=== PATIENT | female | born 1960 | race Caucasian/White ===

== ENCOUNTER 2022-11-18 09:28 | Emergency (ER) | payer BC ==
[2022-11-18] MEDS ORDERED: Sodium Chloride 0.9% 1000 ML 1,000 ML IV SCH (10:30)
--- NOTE | 2022-11-18 10:30 | ERPHSYRPT ---
- History of Present Illness Time Seen by Provider: 11/18/22 10:25 Historian: patient Exam Limitations: no limitations Patient Subjective Stated Complaint: C/O right sided abdominal pain for the past 2 days. Pain has become more constant. Mild nausea without vomiting. Patient is unsure if she has an appendix or not; states gallbladder was removed in the 80s and she can't recall if they took out her appendix as well or not. Triage Nursing Assessment: Patient ambulated back to ER without difficulties. She is alert and oriented. No SOB. Skin tone normal. Right side of abdomen is tender to mild palpation. Bowel sounds present but more faint on the right side. Physician History: Patient is a 62-year-old female presents to our ED for evaluation of right upper and mid abdominal pain. Pain started 2 days ago and has been constant. Patient has been experiencing a "bloated" sensation. Patient has been experiencing d iarrhea as well. No nausea or vomiting. Patient states she had a cholecystectomy done in the 80s. She is unsure of whether or not she has an appendix. No trauma. No fever. Symptoms are constant. Symptoms are moderate in intensity. Palpation and movement reproduce pain. Pain improved with rest. Patient states she is otherwise healthy. She voices no other complaints or concerns at this time. Portions of this note were created with voice recognition technology. There may be grammatical, spelling, punctuation or sound alike errors Timing/Duration: day(s) (2 days ago) Activities at Onset: none Quality: aching Abdominal Pain Onset Location: RUQ, other (Right upper quadrant and right mid abdomen) Pain Radiation: no radiation Severity of Pain-Max: moderate Severity of Pain-Current: mild Modifying Factors: Improves With: movement, palpation Associated Symptoms: diarrhea Previous symptoms: no prior history Allergies/Adverse Reactions: methylprednisolone [From Medrol] Adverse Reaction (Verified 11/18/22 09:42) Home Medications: Sulphur-3/Dha/Epa/Fish Oil [Fish Oil 1,600 mg/5 ml Liquid] 1,600 mg PO DAILY 04/30/15 [History] Lactobacillus Combo No.10 [Probiotic] 1 cap PO DAILY 11/18/22 [History] Magnesium Oxide 400 mg [Mag-Ox 400] 1 tab PO DAILY 11/18/22 [History] Hx Tetanus, Diphtheria Vaccination/Date Given: Yes Immunizations Up to Date: Yes Travel Risk - International Travel Have you traveled outside of the country in past 3 weeks: No - Coronavirus Screening Are you exhibiting any of the following symptoms?: Yes Symptoms: Vomiting/Diarrhea, Headaches/Body Aches/Fatigue Close contact with a COVID-19 positive Pt in past 14-21 Days: No - Vaccine Status Have you recieved a Covid-19 vaccination: No - Review of Systems Constitutional: No Symptoms, No Fever, No Chills Eyes: No Symptoms Ears, Nose, & Throat: No Symptoms Respiratory: No Symptoms, No Cough, No Dyspnea Cardiac: No Symptoms, No Chest Pain, No Edema, No Syncope Abdominal/Gastrointestinal: No Symptoms, No Abdominal Pain, No Nausea, No Vomiting, No Diarrhea Genitourinary Symptoms: No Symptoms, No Dysuria Musculoskeletal: No Symptoms, No Back Pain, No Neck Pain Skin: No Symptoms, No Rash Neurological: No Symptoms, No Dizziness, No Focal Weakness, No Sensory Changes Psychological: No Symptoms Endocrine: No Symptoms Hematologic/Lymphatic: No Symptoms Immunological/Allergic: No Symptoms All Other Systems: Reviewed and Negative - Past Medical History Pertinent Past Medical History: Yes Neurological History: No Pertinent History ENT History: No Pertinent History Cardiac History: No Pertinent History Respiratory History: No Pertinent History Endocrine Medical History: No Pertinent History Musculoskeletal History: Other GI Medical History: GERD, Gallbladder Disease History: No Pertinent History Psycho-Social History: No Pertinent History Female Reproductive Disorders: Endometriosis Other Medical History: cholelithiasis,GERD - Past Surgical History Past Surgical History: Yes Neuro Surgical History: No Pertinent History Cardiac: No Pertinent History Respiratory: No Pertinent History Gastrointestinal: Cholecystectomy Genitourinary: No Pertinent History Musculoskeletal: Orthopedic Surgery Female Surgical History: Hysterectomy, Dilation & Curettage Other Surgical History: right knee meniscus repair - Social History Smoking Status: Never smoker Exposure to second hand smoke: No Drug Use: none Patient Lives Alone: No - Nursing Vital Signs Nursing Vital Signs: Initial Vital Signs Pulse Rate 83 11/18/22 09:38 Respiratory Rate 12 11/18/22 09:38 Blood Pressure 146/87 11/18/22 09:38 O2 Sat by Pulse Oximetry 92 L 11/18/22 09:38 Pain Scale Pain Intensity 0 - Physical Exam General Appearance: no apparent distress, alert Eye Exam: PERRL/EOMI Ears, Nose, Throat Exam: pharynx normal, moist mucous membranes Neck Exam: normal inspection, non-tender, full range of motion Respiratory Exam: normal breath sounds, lungs clear, airway intact, No respiratory distress Cardiovascular Exam: regular rate/rhythm, normal heart sounds, normal peripheral pulses Gastrointestinal/Abdomen Exam: soft, tenderness (Right upper quadrant and right mid abdominal tenderness. Overlying soft tissue intact. No signs of trauma), No mass Back Exam: normal inspection, normal range of motion, No CVA tenderness, No vertebral tenderness Extremity Exam: normal inspection, normal range of motion, pelvis stable Neurologic Exam: alert, oriented x 3, cooperative, normal mood/affect, nml cerebellar function, sensation nml, No motor deficits Skin Exam: normal color, warm, dry Lymphatic Exam: No adenopathy SpO2 Interpretation: normal SpO2: 94 O2 Delivery: Room Air - Course Nursing assessment & vital signs reviewed: Yes - CT Exams Abdomen/Pelvis CT Interpretation: Tele-radiologist Report (Lung granuloma, small hiatal hernia, diverticulosis, colitis/diverticulitis, hepatomegaly, liver cyst versus hemangioma, possible cecal mass) Ordered Tests: Active Orders 24 hr Category Date Time Status IV Insertion STAT Care 11/18/22 10:21 Active ABDOMEN AND PELVIS W/0 CONTRAS [CT] Stat Exams 11/18/22 10:22 Completed CBC W DIFF Stat Lab 11/18/22 10:35 Completed CMP Stat Lab 11/18/22 10:35 Completed CULTURE,URINE Stat Lab 11/18/22 10:33 Received LIPASE Stat Lab 11/18/22 10:35 Completed TROPONIN Q4H Lab 11/18/22 10:35 Completed TROPONIN Q4H Lab 11/18/22 14:30 Ordered TROPONIN Q4H Lab 11/18/22 18:30 Ordered UA W/RFX UR CULTURE Stat Lab 11/18/22 10:33 Completed Medication Summary Generic Name Dose Route Start Last Admin Trade Name Freq PRN Reason Stop Dose Admin Sodium Chloride 1,000 mls @ 100 mls/hr 11/18/22 10:30 11/18/22 10:39 Sodium Chloride 0.9% 1000 Ml IV 12/18/22 10:29 100 mls/hr .Q10H RICCARDO Administration Piperacillin Sod/Tazobactam 100 mls @ 200 mls/hr 11/18/22 11:59 11/18/22 12:02 Sod 3.375 gm/ Sodium Chloride IV 11/18/22 12:28 200 mls/hr STAT ONE Administration Discontinued Medications Generic Name Dose Route Start Last Admin Trade Name Alfred PRN Reason Stop Dose Admin Fentanyl Citrate 25 mcg 11/18/22 10:40 11/18/22 10:42 Fentanyl Citrate 100 Mcg/2 Ml* Vial IV 11/18/22 10:41 25 mcg STAT ONE Administration Sodium Chloride Confirm 11/18/22 12:01 Sodium Chloride 100ml Mini-Bag Plus Administered 11/18/22 12:02 Dose 100 mls @ ud IV .STK-MED ONE Ketorolac Tromethamine 30 mg 11/18/22 10:36 11/18/22 10:36 Ketorolac Tromethamine 30 Mg/Ml Inj IV 11/18/22 10:37 30 mg STAT ONE Administration Piperacillin Sod/Tazobactam Sod Confirm 11/18/22 12:00 Piperacillin/Tazobactam Sodium 3.375 Gm Vial Administered 11/18/22 12:01 Dose 3.375 gm IV .STK-MED ONE Lab/Rad Data: Laboratory Result Diagrams 11/18/22 10:35 11/18/22 10:35 Laboratory Results 11/18/22 11/18/22 11/18/22 Range/Units 10:35 10:35 10:35 WBC 9.5 (4.0-10.5) x10^3/uL RBC 5.22 (4.1-5.4) x10^6/uL Hgb 14.1 (12.0-16.0) g/dL Hct 43.4 (35-47) % MCV 83.1 (78-100) fL MCH 27.0 (26-32) pg MCHC 32.5 (32-36) g/dL RDW 13.2 (11.5-14.0) % Plt Count 139 L (150-450) x10^3/uL MPV 7.8 (7.5-11.0) fL Gran % 79.0 H (36.0-66.0) % Immature Gran % (Auto) 0.2 (0.00-0.4) % Nucleat RBC Rel Count 0.0 (0.00-0.1) % Eos # (Auto) 0.02 (0-0.5) x10^3/uL Immature Gran # (Auto) 0.02 (0.00-0.03) x10^3u/L Absolute Lymphs (auto) 1.23 (1.0-4.6) x10^3/uL Absolute Monos (auto) 0.71 (0.0-1.3) x10^3/uL Absolute Nucleated RBC 0.00 (0.00-0.01) x10^3u/L Lymphocytes % 12.9 L (24.0-44.0) % Monocytes % 7.5 (0.0-12.0) % Eosinophils % 0.2 (0.00-5.0) % Basophils % 0.2 (0.0-0.4) % Absolute Granulocytes 7.52 H (1.4-6.9) x10^3/uL Basophils # 0.02 (0-0.4) x10^3/uL Sodium 138 (137-145) mmol/L Potassium 4.1 (3.5-5.1) mmol/L Chloride 104 (98-107) mmol/L Carbon Dioxide 22 (22-30) mmol/L Anion Gap 15.9 H (5-15) MEQ/L BUN 13 (7-17) mg/dL Creatinine 0.60 (0.52-1.04) mg/dL Estimated GFR > 60.0 ML/MIN Glucose 118 H (74-106) mg/dL Calcium 9.5 (8.4-10.2) mg/dL Total Bilirubin 0.90 (0.2-1.3) mg/dL AST 26 (14-36) U/L ALT 24 (0-35) U/L Alkaline Phosphatase 62 (38-126) U/L Troponin I < 0.012 (0.000-0.034) ng/mL Serum Total Protein 7.9 (6.3-8.2) g/dL Albumin 4.5 (3.5-5.0) g/dL Lipase 98 (23-300) U/L Urine Color (Yellow) Urine Appearance (Clear) Urine pH (4.6-8.0) Ur Specific [place] (1.005-1.030) Urine Protein (Negative) Urine Glucose (UA) (Negative) mg/dL Urine Ketones (Negative) Urine Blood (Negative) Urine Nitrite (Negative) Urine Bilirubin (Negative) Urine Urobilinogen (0.2) mg/dL Ur Leukocyte Esterase (Negative) U Hyaline Cast (Auto) (0-2) /LPF Urine Microscopic RBC (0-5) /HPF Urine Microscopic WBC (0-5) /HPF Ur Epithelial Cells (None Seen) /HPF Urine Bacteria (None Seen) /HPF Urine Culture Reflexed (NO) 11/18/22 Range/Units 10:33 WBC (4.0-10.5) x10^3/uL RBC (4.1-5.4) x10^6/uL Hgb (12.0-16.0) g/dL Hct (35-47) % MCV (78-100) fL MCH (26-32) pg MCHC (32-36) g/dL RDW (11.5-14.0) % Plt Count (150-450) x10^3/uL MPV (7.5-11.0) fL Gran % (36.0-66.0) % Immature Gran % (Auto) (0.00-0.4) % Nucleat RBC Rel Count (0.00-0.1) % Eos # (Auto) (0-0.5) x10^3/uL Immature Gran # (Auto) (0.00-0.03) x10^3u/L Absolute Lymphs (auto) (1.0-4.6) x10^3/uL Absolute Monos (auto) (0.0-1.3) x10^3/uL Absolute Nucleated RBC (0.00-0.01) x10^3u/L Lymphocytes % (24.0-44.0) % Monocytes % (0.0-12.0) % Eosinophils % (0.00-5.0) % Basophils % (0.0-0.4) % Absolute Granulocytes (1.4-6.9) x10^3/uL Basophils # (0-0.4) x10^3/uL Sodium (137-145) mmol/L Potassium (3.5-5.1) mmol/L Chloride (98-107) mmol/L Carbon Dioxide (22-30) mmol/L Anion Gap (5-15) MEQ/L BUN (7-17) mg/dL Creatinine (0.52-1.04) mg/dL Estimated GFR ML/MIN Glucose (74-106) mg/dL Calcium (8.4-10.2) mg/dL Total Bilirubin (0.2-1.3) mg/dL AST (14-36) U/L ALT (0-35) U/L Alkaline Phosphatase (38-126) U/L Troponin I (0.000-0.034) ng/mL Serum Total Protein (6.3-8.2) g/dL Albumin (3.5-5.0) g/dL Lipase (23-300) U/L Urine Color Yellow (Yellow) Urine Appearance Clear (Clear) Urine pH 6.0 (4.6-8.0) Ur Specific [place] 1.020 (1.005-1.030) Urine Protein Negative (Negative) Urine Glucose (UA) Negative (Negative) mg/dL Urine Ketones Trace A (Negative) Urine Blood Moderate A (Negative) Urine Nitrite Negative (Negative) Urine Bilirubin Negative (Negative) Urine Urobilinogen 0.2 (0.2) mg/dL Ur Leukocyte Esterase Small A (Negative) U Hyaline Cast (Auto) NONE SEEN (0-2) /LPF Urine Microscopic RBC 3-5 (0-5) /HPF Urine Microscopic WBC 6-10 A (0-5) /HPF Ur Epithelial Cells Rare (None Seen) /HPF Urine Bacteria None Seen (None Seen) /HPF Urine Culture Reflexed YES (NO) - Progress Progress: improved Progress Note: Patient is a 62-year-old female presents to the emergency department for evaluation of right-sided abdominal pain. Physical exam reveals tenderness along the right abdomen. Test ordered include CT abdomen pelvis which reveals a colitis versus diverticulitis. Incidental possible cecal mass cannot be excluded. This finding was conveyed to the patient and patient understands that she will have to follow-up with her primary care doctor to reassess the poss ibility of a cecal mass. CBC essentially nonremarkable. No leukocytosis. CMP within normal limits. Lipase negative. Troponin negative. Urinalysis reveals a urinary tract infection. A dose of Zosyn administered in our ED. Patient states that she prefers to go home. Patient does not want to stay in the hospital for an admission. Patient understand that she will continue antibiotics as an outpatient basis. A prescription for Augmentin was forwarded to patient's pharmacy also a prescription for Mos[place] was forwarded as well. Patient understands she will be on bowel rest clear liquid for the next 3 to 4 days. IV fluids infused. Patient received both fentanyl and Toradol for pain control. Patient resting comfortably. No active pain. We will discharge home after administration of Zosyn. Patient agrees to follow-up with her primary care doctor within 48 hours for reevaluation. Significant other at bedside. They voiced no other complaints or concerns at this time. Portions of this note were created with voice recognition technology. There may be grammatical, spelling, punctuation or sound alike errors Complexity of problem addressed is moderate, acute complicated No critical care time Complexity of data reviewed and analyzed is moderate. Test ordered test review ed and analyzed. Clinical correlation made between the CT abdomen pelvis findings and laboratory findings of versus physical exam findings. Patient diagnosed with a diverticulitis/colitis as a source of her pain. Antibiotics administered. Bowel rest with clear liquids at home. Follow-up regarding possible cecal mass as discussed above Risk of complication and or risk morbidity/mortality of patient management is moderate. Patient received IV fentanyl/controlled medication. A prescription for both [place] and Augmentin was forwarded to patient's pharmacy. Plan of care established for shared decision making. No social determinants of health present to impede follow-up. Vital stable. Time spent to discharge patient approximately 15 minutes. Patient will follow-up with her primary care doctor within 48 hours for reevaluation. She voices no other complaints or concerns at this time. Portions of this note were created with voice recognition technology. There may be grammatical, spelling, punctuation or sound alike errors 11/18/22 12:07 Counseled pt/family regarding: lab results, diagnosis, need for follow-up, rad results - Departure Departure Disposition: Home Clinical Impression: Lung granuloma, UTI (urinary tract infection), Small hiatal hernia, Diverticulosis, Diverticulitis, Colitis versus diverticulitis, Hepatomegaly, Liver cyst versus hemangioma, Possible cecal mass, Thrombocytopenia Condition: Stable Critical Care Time: No Referrals: [place] TANG [Primary Care Provider] - Follow up/PCP as directed Instructions: Amoxicillin and Clavulanate, Hydrocodone and Acetaminophen Additional Instructions: He will require bowel rest in the form of a clear liquid diet for the next 3 to 4 days. Discharge/Care Plan TOÑA LAL KUSUM was seen on 11/18/22 in the Emergency Room. The patient was counseled regarding Diagnosis,Lab results, Imaging studies, need for follow up and when to return to the Emergency Room. Prescriptions given: Discharge Note I have spoken with the patient and/or caregivers. I have explained the patient's condition, diagnosis and treatment plan based on the information available to me at this time. I have answered the patient's and/or caregiver's questions and addressed any concerns. The patient and/or caregivers have as good understanding of the patient's diagnosis, condition and treatment plan as can be expected at this point. The vital signs have been stable. The patient's condition is stable and appropriate for discharge from the emergency department. The patient will pursue further outpatient evaluation with the primary care physician or other designated or consulting physician as outlined in the discharge instructions. The patient and/or caregivers are agreeable to this plan of care and follow-up instructions have been explained in detail. The patient and/or caregivers have received these instruction. The patient/and or caregivers are aware that any significant change in condition or worsening of symptoms should prompt an immediate return to this or the closest emergency department or call 911. Prescriptions: Hydrocodone/APAP 5/325 [[place] 5/325 mg] 1 each PO Q6H PRN PRN #10 tablet MDD 4 PRN Reason: Pain Amox Tr/Potass Clav. 875 mg [Augmentin 875-125 Tablet] 875 mg PO BID 7 Days #14 tablet
[2022-11-18] MEDS ORDERED: TORAdol 30 mg Injection IV ONE (10:36)
[2022-11-18] MEDS ORDERED: Sodium Chloride 0.9% 1000 ML 1,000 ML ONE (10:38)
[2022-11-18] MEDS ORDERED: SUBLIMAZE 100 MCG/2 ML IV ONE (10:40)
[2022-11-18 10:44] LABS: Absolute Neutrophil Ct (ANC) 7.52 x10^3/uL (1.4-6.9); BASOPHIL % 0.2 % (0.0-0.4); Basophil (Absolute #) 0.02 x10^3/uL (0-0.4); Eosinophil % 0.2 % (0.00-5.0); Eosinophil (Absolute #) 0.02 x10^3/uL (0-0.5); Hematocrit 43.4 % (35-47); Hemoglobin 14.1 g/dL (12.0-16.0); IMMATURE GRAN # 0.02 x10^3u/L (0.00-0.03); IMMATURE GRAN % 0.2 % (0.00-0.4); Lymphocyte (Absolute #) 1.23 x10^3/uL (1.0-4.6); Lymphocytes % 12.9 % (24.0-44.0); Mean Cell Volume 83.1 fL (78-100); Mean Corpuscular Hgb Concent. 32.5 g/dL (32-36); Mean Platelet Volume 7.8 fL (7.5-11.0); Monocyte (Absolute #) 0.71 x10^3/uL (0.0-1.3); Monocytes % 7.5 % (0.0-12.0); Platelet Count 139 x10^3/uL (150-450); Red Blood Count 5.22 x10^6/uL (4.1-5.4); Red Cell Distribution Width 13.2 % (11.5-14.0); White Blood Count 9.5 x10^3/uL (4.0-10.5)
[2022-11-18 11:02] LABS: Appearance Clear (Clear); Bacteria None Seen /HPF (None Seen); Bilirubin Negative (Negative); Blood Moderate (Negative); Epithelial Cells Rare /HPF (None Seen); Glucose, Urine Negative (Negative); Hyaline Casts NONE SEEN /LPF (0-2); Ketones Trace (Negative); Leukocyte Esterase Small (Negative); Nitrite Negative (Negative); Protein,Urine Dip Negative (Negative); Urobilinogen 0.2 mg/dL (0.2)
[2022-11-18 11:05] LABS: ADD URINE CULTURE? YES (NO)
--- NOTE | 2022-11-18 11:07 | XRAY ---
Indication: Right abdomen pain. Multiple contiguous axial images obtained through the abdomen and pelvis without contrast. Comparison: None Lung bases demonstrate scattered fibrosis/scarring and tiny right middle lobe calcified granuloma. Heart not enlarged. Small hiatal hernia. Noncontrasted stomach and bowel loops appear nonobstructed with normal appendix. Minimal scattered colonic diverticulosis. Cecum demonstrates short segment of abnormal bowel wall thickening with moderate stranding, probable colitis/diverticulitis with tiny free fluid. Cecal mass not completely excluded. No free air. Hepatomegaly measuring 20 cm. Right lobe liver demonstrate 1.1 cm peripheral cyst versus hemangioma. Previous cholecystectomy and hysterectomy. Remaining liver, pancreas, spleen, adrenal glands, kidneys, ureters, bladder, and aorta are unremarkable for noncontrast exam. Osseous structures intact. No ventral or inguinal hernias. Impression: 1. Scattered colonic diverticulosis. Focal cecal bowel wall thickening with stranding and tiny free fluid, probable colitis/diverticulitis. Cannot completely excluded cecal mass. 2. Chronic findings including pulmonary fibrosis/scarring, right lung calcified granuloma, hiatal hernia, hepatomegaly, and small hepatic cyst versus hemangioma.
[2022-11-18 11:11] LABS: ALBUMIN 4.5 g/dL (3.5-5.0); ALKALINE PHOSPHATASE 62 U/L (38-126); ANION GAP 15.9 MEQ/L (5-15); BLOOD UREA NITROGEN 13 mg/dL (7-17); CHLORIDE 104 mmol/L (98-107); Calcium 9.5 mg/dL (8.4-10.2); Carbon Dioxide 22 mmol/L (22-30); EST GLOMERULAR FILTRATION RATE > 60.0 ML/MIN; Glucose 118 mg/dL (74-106); LIPASE 98 U/L (23-300); Potassium 4.1 mmol/L (3.5-5.1); SGOT/AST 26 U/L (14-36); SGPT/ALT 24 U/L (0-35); SODIUM 138 mmol/L (137-145); Total Protein 7.9 g/dL (6.3-8.2)
[2022-11-18 11:46] VITALS: O2SAT 94
[2022-11-18] MEDS ORDERED: PIPERACILLIN/TAZOBACTAM 3.375 GM in Sodium Chloride 100ML MINI-BAG PLUS 100 ML IV ONE (11:59)
[2022-11-18] MEDS ORDERED: PIPERACILLIN/TAZOBACTAM IV ONE (12:00)
[2022-11-18] MEDS ORDERED: Sodium Chloride 100ML MINI-BAG PLUS 100 ML IV ONE (12:01)
[2022-11-18] MEDS ORDERED: NORCO 5/325 MG PO ONE (13:01)
[2022-11-18] MEDS ORDERED: NORCO 5/325 MG ONE (13:02)
[2022-11-18 13:03] VITALS: BP 121/78; PULSE 71
== END 2022-11-18 13:27 | disposition home or self-care (01) ==
LOC: ED 09:28
DX: K57.92 Diverticulitis of intestine, part unspecified, without perforation or abscess without bleeding (principal); K57.90 Diverticulosis of intestine, part unspecified, without perforation or abscess without bleeding; N39.0 Urinary tract infection, site not specified; J84.10 Pulmonary fibrosis, unspecified; K44.9 Diaphragmatic hernia without obstruction or gangrene; R16.0 Hepatomegaly, not elsewhere classified; D69.6 Thrombocytopenia, unspecified; R10.11 Right upper quadrant pain; R10.13 Epigastric pain; R10.33 Periumbilical pain; R19.7 Diarrhea, unspecified; Z79.891 Long term (current) use of opiate analgesic; Z79.899 Other long term (current) drug therapy; Z28.310 Unvaccinated for COVID-19
CPT/HCPCS: 36000; 36415; 74176; 80053; 81001; 83690; 84484; 85025; 87086; 96365; 96374; 96375; 99284; J1885; J3010; A9270-GY

== ENCOUNTER 2023-01-21 06:01 | Day surgery (SDC) | payer BC ==
[2023-01-21 06:25] VITALS: RESP 16
[2023-01-21] MEDS ORDERED: Lactated Ringers 1,000 ML IV SCH (06:30)
[2023-01-21] MEDS ORDERED: Xylocaine-Mpf 2% 5 Ml Vial ONE (07:07)
[2023-01-21] MEDS ORDERED: DIPRIVAN 200 MG/20 ML IV ONE (07:08)
[2023-01-21 07:40] VITALS: TEMP 96.9
--- NOTE | 2023-01-21 07:54 | OP ---
SURGERY DATE/TIME: 01/21/2023 0701 PREOPERATIVE DIAGNOSIS: Screening exam. POSTOPERATIVE DIAGNOSIS: Mild diverticulosis. PROCEDURE: Colonoscopy. SURGEON: Dr. Drummond. ANESTHESIA: Medications given by anesthesia department. HISTORY: The patient is a 62-year-old white female presenting now for screening colonoscopy. The patient was appraised of the risks of the procedure including the risk of perforation, phlebitis, untoward reaction to medication, bleeding and missed lesions. The patient verbalized her understanding and desired to have the procedure performed. DESCRIPTION OF PROCEDURE: The patient was given the medications by the anesthesia department. She had continuous pulse oximetry, ECG monitoring and intermittent blood pressure monitoring during the examination. The patient was placed in the left lateral decubitus position. Digital rectal examination was performed and revealed normal anal sphincter tone and no masses. The flexible Olympus pediatric colonoscope was used to intubate the rectum. A view of the colon was developed sequentially to the cecum. Upon insertion and withdrawal, including a retroflex view in the rectum there was noted scattered diverticula throughout the colon. No other mucosal lesions being encountered the scope was removed from the patient who tolerated the procedure well and sent back to OP recovery in good condition. The prep was noted to be fair to good.
[2023-01-21 07:57] VITALS: BP 142/90; PULSE 60; O2SAT 98
== END 2023-01-21 08:00 | disposition home or self-care (01) ==
LOC: SDC 06:01
PROVIDERS: ATTEND Family Medicine
DX: Z12.11 Encounter for screening for malignant neoplasm of colon (principal); K57.30 Diverticulosis of large intestine without perforation or abscess without bleeding
CPT/HCPCS: J2704